=== PATIENT | female | born 1960 | race Two or more races ===

== ENCOUNTER 2020-10-29 12:21 | Emergency (ER) | payer MEDICAID ==
[~2020-10-29] VITALS: Ht 152.4 cm; Wt 49.9 kg
[2020-10-29 13:15] VITALS: BP 147/65
--- NOTE | 2020-10-29 13:20 | NUR ---
BIBS FOR C/O PAINFUL RASH, RIGHT FLANK. RATES PAIN 10/10. DENIES TRAUMA. WILL CONTINUE TO MONITOR THE PATIENT.
[2020-10-29] MEDS ORDERED: VALA100026 PO (14:35)
== END 2020-10-29 14:59 | disposition home or self-care (01) ==
LOC: ER 12:24
DX: B02.9 Zoster without complications (principal); R00.0 Tachycardia, unspecified